=== PATIENT | male | born 1975 | race Asian ===

== ENCOUNTER 2018-08-23 08:28 | Emergency (ER) | payer OTHER ==
[~2018-08-23] VITALS: Ht 177.8 cm; Wt 124.7 kg
--- NOTE | 2018-08-23 08:35 | NUR ---
ER BED 3, MEDIAL RIGHT ABDO PAIN. NAUSEA. WAITING FOR MD.
[2018-08-23 08:57] LABS: APPEARANCE,URINE Clear (CLEAR); BILIRUBIN,URINE Negative (NEGATIVE); BLOOD, URINE Trace-lysed Ery/uL (NEGATIVE); COLOR,URINE Yellow (YELLOW); KETONES,URINE 15 (NEGATIVE); LEUKOCYTE ESTERASE ,URINE Negative (NEGATIVE); NITRITE, URINE Negative (NEGATIVE); PROTEIN,URINE 30 mg/dl (NEGATIVE); UGLUCOSE 250 MG/DL mg/dL (NEGATIVE); UROBILINOGEN,URINE 0.2 EU/dL (0.2)
[2018-08-23] MEDS ORDERED: IV NS 0.9% 1,000 ML BAG IV ONE (09:00)
[2018-08-23] MEDS ORDERED: KETOROLAC TROMETHAMINE INJ 30 MG/ML VIAL IV ONE (09:00)
--- NOTE | 2018-08-23 09:00 | NUR ---
SEEN BY MD DAVE, IV PLACED, LABS DRAWN AND UA SUBMITTED.
[2018-08-23] MEDS ORDERED: KETOROLAC TROMETHAMINE INJ 30 MG/ML VIAL ONE (09:01)
[2018-08-23 09:03] LABS: CALCIUM, SERUM 9.1 mg/dL (8.5-10.1); CREATININE 1.1 mg/dL (0.6-1.3); POTASSIUM 3.4 mmol/L (3.5-5.1)
[2018-08-23] MEDS ORDERED: KETOROLAC TROMETHAMINE 15 MG/ML VIAL ONE (09:03)
[2018-08-23 09:09] LABS: ALBUMIN 4.5 g/dL (3.4-5.0); BILIRUBIN,DIRECT 0.1 mg/dL (0.0-0.2); BILIRUBIN,TOTAL 0.5 mg/dL (0.2-1.0); TOTAL PROTEIN, SERUM 8.8 g/dL (6.4-8.2)
--- NOTE | 2018-08-23 09:10 | NUR ---
ANALGESIA PROVIDED AND IV FLUIDS STATRED PER RX.
[2018-08-23 09:16] LABS: BACTERIA,URINE Rare /HPF (None Seen); RBC,URINE NONE SEEN /HPF (0-2); SQUAMOUS EPITHELIAL CELL,UR Few /HPF (None Seen); WBC,URINE NONE SEEN /HPF (0-3)
[2018-08-23] MEDS ORDERED: ONDANSETRON HCL/PF 4 MG/2 ML VIAL ONE (09:17)
[2018-08-23 09:18] LABS: BASOPHILS % (AUTO) 0.3 % (0.0-2.0); EOSINOPHILS % (AUTO) 1.7 % (0.0-6.0); HEMATOCRIT 49 % (39-51); HEMOGLOBIN 16.4 g/dL (13.5-17.5); LYMPHOCYTES # (AUTO) 2.3 /CMM (0.8-4.8); LYMPHOCYTES % (AUTO) 23.6 % (20.0-44.0); MEAN CORPUSCULAR HGB CONC 33 g/dl (31.0-36.0); MEAN CORPUSCULAR VOLUME 92 fL (80-96); MONOCYTES # (AUTO) 0.6 /CMM (0.1-1.30); MONOCYTES % (AUTO) 6.2 % (2.0-12.0); NEUTROPHILS # (AUTO) 6.7 /CMM (1.8-8.9); NEUTROPHILS % (AUTO) 68.2 % (43.0-81.0); PLATELET COUNT (AUTO) 252 /CMM (150-450); RED BLOOD CELL COUNT(AUTO) 5.36 MIL/uL (4.5-6.0); WHITE BLOOD COUNT (AUTO) 9.8 K/uL (4.3-11.0)
[2018-08-23] MEDS ORDERED: ONDANSETRON HCL/PF 4 MG/2 ML VIAL IVP ONE (09:30)
--- NOTE | 2018-08-23 09:30 | NUR ---
ANTIEMEITC GIVEN PER RX.
--- NOTE | 2018-08-23 09:55 | NUR ---
PT TO CT
--- NOTE | 2018-08-23 09:55 | NUR ---
PT TO RESTROOM.
[2018-08-23] MEDS ORDERED: HYDROMORPHONE INJ 2 MG/ML DISP.SYRIN IV ONE (10:00)
[2018-08-23] MEDS ORDERED: HYDROMORPHONE 1 MG/1 ML DISP.SYRIN ONE (10:02)
--- NOTE | 2018-08-23 10:10 | NUR ---
PT REMAINS WITH 9/10 MEDIAL RIGHT UPPER ABDO PAIN. ANALGESIA ADMINSTERED.
[2018-08-23 10:18] VITALS: BP 155/95
--- NOTE | 2018-08-23 11:03 | NUR ---
PT RETURNED FROM CT. RECONNECTED TO IVF, REPORTS PAIN TOLERABLE 3/10
--- NOTE | 2018-08-23 12:20 | NUR ---
PT D/C PER MD. PT PROVIDED SCRIPTS AND EDUCATION. VERBALIZING UNERSTANDING, RESOURCES AND INTENT TO FOLLOR D/C POC.
== END 2018-08-23 12:43 | disposition home or self-care (01) ==
LOC: ER 08:28
DX: K20.9 Esophagitis, unspecified (principal); R11.10 Vomiting, unspecified; E11.9 Type 2 diabetes mellitus without complications; E78.00 Pure hypercholesterolemia, unspecified
CPT/HCPCS: 36415; 74176; 76705; 80048; 80076; 81001; 83690; 84484; 85025; 93005; 96361; 96374; 96375; 99284; J1170; J1885; J2405; J7030; 81000-TC